=== PATIENT | female | born 1965 ===

== ENCOUNTER 2024-12-03 05:30 | Day surgery (SDC) | payer OTHER ==
[~2024-12-03 05:30] MED LIST: COZAAR50 MG PO; ELIQUIS5 MG PO; HORIZANT300 MG PO; HUMALOG100 UNIT/2; LIPITOR40 M1 PO; REPATHA SU140 MG/1 M SUBCUTANEO; TOPROL XL50 M1 PO
[2024-12-03] MEDS ORDERED: POVIDONE-IODINE 118 ML BOTT TOP ONE (06:59)
[2024-12-03] MEDS ORDERED: CHLORHEXIDINE GLUCONATE 120 ML BOTTLE TOP ONE (07:23)
[2024-12-03] MEDS ORDERED: CEFAZOLIN SODIUM 1,000 MG VIAL IV ONE (08:00)
[2024-12-03] MEDS ORDERED: LIDOCAINE HCL 1%/EPINEPHRINE 20ML VIAL IJ ONE (08:06)
[2024-12-03] MEDS ORDERED: MORPHINE SULFATE 4 MG/ML VIAL IV ONE ×2 (11:20→12:40)
[2024-12-03] MEDS ORDERED: ZITHROMAX TRI-500 MG PO (12:27)
[2024-12-03] MEDS ORDERED: ONDANSETRON HCL 2 MG/ML VIAL ONE (12:32)
== END 2024-12-03 14:07 | disposition home or self-care (01) ==
LOC: CIR.AMB 05:30
PROVIDERS: ATTEND Obstetrics & Gynecology
DX: D06.9 Carcinoma in situ of cervix, unspecified (principal)